=== PATIENT | female | born 1985 | race Caucasian/White ===

== ENCOUNTER 2016-09-06 17:19 | Emergency (ER) | payer OTHER ==
[~2016-09-06 17:19] MED LIST: ACETAMINOPHEN PO; AMOXICILLIN500 M1 PO; ATENOLOL PO; BACTRIM DS TABL1 TA1 PO; BUPRENORPHINE HC8 MG SL; CIPRO PO; COLACE PO; DARVOCET-N 1001 TA1 DOB; DELTASONE20 MG PO; FLAGYL PO; KEFLEX PO; LORTAB 10/500 T1 TAB PO; LORTAB 5/500 TA1 TA1 PO; MAGIC MOUTHWASH; MOTRIN400 MG PO; NAPROSYN375 MG PO; NAPROXEN PO; NEXIUM20 MG PO; NICOTINE T1 PATCH .2 TOP; NO MEDICATIONS; PHENERGAN PO; PHENERGAN25 MG PO; PRILOSEC20 M1 PO; PROTONIX PO; PYRIDIUM PO; SUBOXONE 8 MG-1 EAC1 PO; ULTRAM PO; VALIUM10 MG PO
== END 2016-09-06 18:26 | disposition home or self-care (01) ==
LOC: CFTX 17:19
DX: R07.0 Pain in throat (principal)
CPT/HCPCS: 36415; 86308; 99283